=== PATIENT | female | born 1985 | race Hispanic/Latino ===

== ENCOUNTER 2018-07-12 14:24 | Observation (INO) | payer MEDICAID ==
[~2018-07-12] VITALS: Ht 157.5 cm; Wt 73.5 kg
[2018-07-12 15:00] LABS: APPEARANCE,URINE Clear (CLEAR); BILIRUBIN,URINE Negative (NEGATIVE); COLOR,URINE Yellow (YELLOW); GLUCOSE, URINE (UA) Negative (NEGATIVE); KETONES,URINE Negative (NEGATIVE); LEUKOCYTE ESTERASE ,URINE Moderate (NEGATIVE); NITRATE,URINE Negative (NEGATIVE); OCCULT BLOOD,URINE Negative (NEGATIVE); PH,URINE 7.5 (5.0-8.0); PROTEIN,URINE Negative (NEGATIVE)
[2018-07-12] MEDS ORDERED: LACTATED RINGERS 1000ML IV SCH (15:00)
[2018-07-12 15:22] LABS: AMORPHOUS SEDIMENT,UR Few /LPF (None Seen); BACTERIA,URINE Few /HPF (None Seen); RBC,URINE None Seen /HPF (0-1); SQUAMOUS EPITHELIAL CELL,UR None Seen /HPF (0-2)
== END 2018-07-12 16:10 | disposition home or self-care (01) ==
LOC: EDH 14:24 → LDH 14:25
PROVIDERS: ADMIT Obstetrics & Gynecology; ATTEND Obstetrics & Gynecology
DX: O26.892 Other specified pregnancy related conditions, second trimester (principal); R10.32 Left lower quadrant pain; M25.552 Pain in left hip; M54.5 Low back pain; Z3A.23 23 weeks gestation of pregnancy
CPT/HCPCS: 81001; 99284; G0378 ×2; J7120; 96360

== ENCOUNTER → 2018-08-08 | Outpatient (CLI) | payer MEDICAID | END | disposition home or self-care (01) | LOC: SHCH 13:56 | PROVIDERS: ATTEND Internal Medicine Cardiovascular Disease | DX: R00.2 Palpitations (principal); R06.00 Dyspnea, unspecified | CPT/HCPCS: 93306 ==